=== PATIENT | female | born 1965 | race Caucasian/White ===

== ENCOUNTER 2017-12-08 12:56 | Emergency (ER) | payer OTHER ==
[2017-12-08 13:15] VITALS: BP 127/70; PULSE 96; TEMP 98.4; BMI 32.3
--- NOTE | 2017-12-08 13:51 | PDOC ---
History of Present Illness - General Chief Complaint: Injury Stated Complaint: TOE INJURY Time Seen by Provider: 12/08/17 12:58 - History of Present Illness Initial Comments: 12/08/17 14:31 Chief complaint: Toe injury, rectal bleeding History of present illness: Patient dropped a heavy mild on her left first toe last night. Persistent pain at the MTP joint. No other injuries. Also complains of rectal bleeding for 2 days, described as several drops of bright red blood after defecation. This has occurred in the past, is intermittent, but has never been addressed Review of systems: Denies lightheadedness, dizziness, chest pain, shortness of breath, abdominal pain, nausea, vomiting, diarrhea, visual or focal neurologic symptoms, unsteadiness of gait. Remainder systems reviewed and found to be negative Past medical history: High blood pressure controlled with medication. Otherwise no significant medical or surgical illnesses Social/family history: Reviewed and noncontributory including GI diseases Physical exam: Alert and oriented well-developed well-nourished no acute distress cheerful and cooperative. Afebrile, vital signs normal No pallor or icterus. ENT clear Neck supple without bruit mass or nodes Chest clear CV regular without murmur rub or gallop Abdomen nondistended. Bowel sounds normal. Soft without mass tenderness organomegaly. Rectal exam: No masses. No hemorrhoids. Stool light brown. No blood. Extremities no CCE Neurological intact Left great toe: No visible sign of injury. No deformity, swelling, erythema, induration. There is tenderness to palpation of the MTP joint, first toe, laterally. X-ray reveals a lucency in the sesamoid bone, possible fracture, nondisplaced. H&H are normal. Stool guaiac negative. No mass or bleeding on rectal exam Impression: Fractured toe, nondisplaced sesamoid. Rectal bleeding, mild, possibly diverticular. Blood count stable Plan: Toe fracture, Jay taped, rest ice and elevation, Motrin, referred to orthopedist for follow-up Return to the hospital if bleeding becomes more severe. Otherwise see trade mark attorney for colonoscopy for definitive diagnosis. Past History - Past Medical History Allergies/Adverse Reactions: Allergies Allergy/AdvReac Type Severity Reaction Status Date / Time Penicillins Allergy Verified 12/08/17 13:02 Home Medications: Ambulatory Orders Metformin HCl 500 mg PO BID 12/08/17 Anemia: No Asthma: No Cancer: No Cardiac Disorders: No CVA: No COPD: No CHF: No Dementia: No Diabetes: Yes GI Disorders: Yes (DIVERTICULITIS) Disorders: No HTN: No Hypercholesterolemia: No Liver Disease: No Psychiatric Problems: Yes (DEPRESSION) Seizures: No Thyroid Disease: No - Surgical History Abdominal Surgery: No Appendectomy: No Cardiac Surgery: No Cholecystectomy: No Lung Surgery: No Neurologic Surgery: No Orthopedic Surgery: No - Suicide/Smoking/Psychosocial Hx Smoking Status: Yes Smoking History: Current every day smoker Have you smoked in the past 12 months: Yes Number of Cigarettes Smoked Daily: 7 If you are a former smoker, when did you quit?: 2013 Information on smoking cessation initiated: Yes 'Breaking Loose' booklet given: 12/08/17 Hx Alcohol Use: Yes Drug/Substance Use Hx: No Substance Use Type: Alcohol *Physical Exam - Vital Signs Last Vital Signs Temp Pulse Resp BP Pulse Ox 98.4 F 96 H 16 127/70 97 12/08/17 12:57 12/08/17 12:57 12/08/17 12:57 12/08/17 12:57 12/08/17 12:57 ED Treatment Course - LABORATORY CBC & Chemistry Diagram: 12/08/17 14:45 - RADIOLOGY Radiology Studies Ordered: Category Date Time Status TOE(S) LEFT [RAD] Stat Radiology 12/08/17 13:20 Ordered *DC/Admit/Observation/Transfer Diagnosis at time of Disposition: Rectal bleeding Fracture, toe Qualifiers: Encounter type: initial encounter Toe: great toe Fracture type: closed Phalanx : unspecified phalanx Fracture alignment: nondisplaced Laterality: left Qualified Code(s): S92.405A - Nondisplaced unspecified fracture of left great toe, initial encounter for closed fracture - Discharge Dispostion Disposition: HOME Condition at time of disposition: Stable Admit: No - Referrals Referrals: León Martin MD [Staff Physician] - 1 week Nikolay Clark MD [Staff Physician] - 2 Days - Patient Instructions Printed Discharge Instructions: DI for Toe Fracture, DI for Rectal Bleeding Additional Instructions: Jay tape as directed for comfort. Rest ice and elevation. See orthopedist for recheck in one week to monitor healing. Return to ER if the rectal bleeding becomes more severe or he get other signs of blood loss, such as lightheadedness, dizziness, chest pain, shortness of breath, abdominal pain. Otherwise follow-up with primary physician and trade mark attorney. You will need colonoscopy to make sure that you bleeding is not from a serious intestinal condition. - Post Discharge Activity Forms/Work/School Notes: Back to Work
[2017-12-08 15:07] LABS: BASO % 0.6 % (0-2.0); EOS % 3.9 % (0-4.5); HEMATOCRIT 48.4 % (32.4-45.2); HEMOGLOBIN 16.7 GM/dl (10.7-15.3); LYMPH % 35.9 % (8-40); MCH 31.8 pg (25.7-33.7); MCHC 34.5 g/dl (32.0-36.0); MEAN CELL VOLUME 92.2 fl (80-96); MEAN PLT VOLUME 8.8 fl (7.5-11.1); MONO % 8.9 % (3.8-10.2); NEUT % 50.7 % (42.8-82.8); PLATELET COUNT 240 K/MM3 (134-434); RBC 5.25 M/mm3 (3.60-5.2); WHITE BLOOD COUNT 7.3 K/mm3 (4.0-10.8)
[2017-12-08 15:54] LABS: ALK PHOS 88 U/L (32-92); ANION GAP 7 (8-16); BLOOD UREA NITROGEN 11 mg/dl (7-18); CALCIUM 9.3 mg/dl (8.4-10.2); CHLORIDE 98 mmol/L (98-107); CO2 24 mmol/L (22-28); POTASSIUM 4.2 mmol/L (3.5-5.1); SGOT/AST 61 U/L (10-42); SGPT/ALT 119 U/L (10-40); SODIUM 129 mmol/L (136-145); TOT PROT 7.2 g/dl (6.4-8.3)
[2017-12-08 16:39] LABS: GLUCOSE,RANDOM 338 mg/dl (74-106)
[2017-12-08 16:44] LABS: CREATININE 0.6 mg/dl (0.6-1.3)
[2017-12-08 16:59] LABS: BILIRUBIN,TOTAL 0.5 mg/dl (0.2-1.0)
== END 2017-12-08 15:56 | disposition home or self-care (01) ==
LOC: FER 12:56
PROC: 2W3VXYZ Immobilization of Left Toe using Other Device (ICD-10-PCS; principal; 2017-12-08)
DX: K62.5 Hemorrhage of anus and rectum (principal); S92.405A Nondisplaced unspecified fracture of left great toe, initial encounter for closed fracture; W20.8XXA Other cause of strike by thrown, projected or falling object, initial encounter; Y93.89 Activity, other specified; Y92.9 Unspecified place or not applicable; F17.210 Nicotine dependence, cigarettes, uncomplicated; I10 Essential (primary) hypertension; F32.9 Major depressive disorder, single episode, unspecified; E11.9 Type 2 diabetes mellitus without complications
CPT/HCPCS: 36415; 73660-TC-FY; 80053; 82272; 85025; 99282-25

== ENCOUNTER 2023-01-04 09:18 | Emergency (ER) | payer OTHER ==
[2023-01-04 09:31] VITALS: BMI 31.3
[2023-01-04] MEDS ORDERED: ACETAMINOPHEN 325 MG TABLET (FP) PO ONE (10:41)
[2023-01-04] MEDS ORDERED: ACETAMINOPHEN 325 MG TABLET (FP) ONE (11:28)
[2023-01-04 11:51] VITALS: BP 121/67; PULSE 86; RESP 19; TEMP 98.2
[2023-01-04] MEDS ORDERED: valACYclovir HCL 1000 MG TABLET PO ONE (11:59)
[2023-01-04] MEDS ORDERED: valACYclovir HCL 500 MG TABLET (FP) ONE (12:13)
== END 2023-01-04 13:25 | disposition home or self-care (01) ==
LOC: JERFT 09:18
DX: B02.9 Zoster without complications (principal)
CPT/HCPCS: 99283-25